=== PATIENT | male | born 1985 | race Caucasian/White ===

== ENCOUNTER 2017-02-12 15:24 | Emergency (ER) | payer BC ==
[~2017-02-12] VITALS: Ht 193 cm; Wt 117.9 kg
[~2017-02-12 15:24] MED LIST: ALEVE220 MG; BACTRIM DS TAB1 EACH PO; BENTYL20 MG PO; IBUPROFEN 200200 M1; NAUZENE TABLET1 EACH PO; OMEPRAZOLE40 MG PO; ONDANSETRON HCL4 M2 PO; PERCOCET 5-3251 EACH PO; ZEGERID 40 MG1 EACH PO; ZOFRAN ODT4 M1 PO
[2017-02-12] MEDS ORDERED: ZYRTEC10 MG PO (16:02)
[2017-02-12] MEDS ORDERED: PREDNISONE 20 M20 MG PO (16:02)
[2017-02-12] MEDS ORDERED: ZANTAC 150MG T150 MG PO (16:02)
[2017-02-12 16:40] VITALS: BP 139/91
== END 2017-02-12 16:40 | disposition home or self-care (01) ==
LOC: ER 15:24
DX: L50.8 Other urticaria (principal); R59.1 Generalized enlarged lymph nodes; Z98.890 Other specified postprocedural states; F10.99 Alcohol use, unspecified with unspecified alcohol-induced disorder

== ENCOUNTER → 2017-11-21 | Outpatient (CLI) | payer BC ==
[~2017-11-21] MED LIST changes: +PREDNISONE 20 M20 MG PO; +ZANTAC 150MG T150 MG PO; +ZYRTEC10 MG PO
== END ==
LOC: RAD 14:11
DX: R05 Cough (principal)